=== PATIENT | male | born 2000 | race Caucasian/White ===

== ENCOUNTER 2021-07-16 18:28 | Emergency (ER) | payer BC ==
[~2021-07-16] VITALS: Ht 175.3 cm; Wt 90.0 kg
[2021-07-16 18:32] VITALS: TEMP 97.2
[2021-07-16 19:55] VITALS: BP 132/78; PULSE 88
== END 2021-07-16 19:55 | disposition home or self-care (01) ==
LOC: COL.ER 18:28 → EDBD 18:29 → COL.ER 19:55
DX: R07.89 Other chest pain (principal); Z20.822 Contact with and (suspected) exposure to COVID-19